=== PATIENT | male | born 1950 | race Caucasian/White ===

== ENCOUNTER 2023-02-13 12:47 | Outpatient (OUT) | payer MEDICARE, SELFPAY ==
--- NOTE | 2023-02-13 | XR_ITS ---
The [address] [address] Patient Name: MISSY GONZALEZ MRN: [id number] date: 1950 Sex: M Assigned Patient Location: [facility] Current Patient Location: [facility] Accession/Order Number: [id number] Exam Date: 02/13/2023 13:12 Report Date: 02/13/2023 13:36 At the request of: CONNER AN Procedure: XR ankle LT min 3V PROCEDURE: XR ankle LT min 3V, XR foot LT min 3V HISTORY: LEFT ANKLE PAIN COMPARISON: XR left ankle and foot 03/07/2022 FINDINGS: BONES:Asymmetric narrowing of the lateral aspect of the tibiotalar joint with near zhuo-rl-dmit articulation. Large calcaneal plantar spur. Flattening of plantar arch. No fracture or dislocation. SOFT TISSUES:Atherosclerotic disease. EFFUSION:None visible. OTHER: Negative. IMPRESSION: 1. 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 This is progressed since prior study. 2. Pes planus and large calcaneal plantar spur; grossly stable. Electronically authenticated by: EMILY LAL Date: 02/13/2023 13:36
--- NOTE | 2023-02-13 | XR_ITS ---
The [address] [address] Patient Name: MISSY GONZALEZ MRN: [id number] date: 1950 Sex: M Assigned Patient Location: [facility] Current Patient Location: [facility] Accession/Order Number: [id number] Exam Date: 02/13/2023 13:12 Report Date: 02/13/2023 13:36 At the request of: CONNER AN Procedure: XR foot LT min 3V PROCEDURE: XR ankle LT min 3V, XR foot LT min 3V HISTORY: LEFT ANKLE PAIN COMPARISON: XR left ankle and foot 03/07/2022 FINDINGS: BONES:Asymmetric narrowing of the lateral aspect of the tibiotalar joint with near vadz-uc-[id number] articulation. Large calcaneal plantar spur. Flattening of plantar arch. No fracture or dislocation. SOFT TISSUES:Atherosclerotic disease. EFFUSION:None visible. OTHER: Negative. IMPRESSION: 1. 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 This is progressed since prior study. 2. Pes planus and large calcaneal plantar spur; grossly stable. Electronically authenticated by: EMILY LAL Date: 02/13/2023 13:36
== END 2023-02-13 12:48 | disposition home or self-care (01) ==
LOC: RAD 12:47
PROVIDERS: Visit Provider Podiatrist Foot & Ankle Surgery
DX: M25.572 Pain in left ankle and joints of left foot (principal); M25.872 Other specified joint disorders, left ankle and foot; M21.42 Flat foot [pes planus] (acquired), left foot; M77.32 Calcaneal spur, left foot
CPT/HCPCS: 73610; 73630